=== PATIENT | female | born 1960 | race Caucasian/White ===

== ENCOUNTER 2021-03-26 13:32 | Emergency (ER) | payer SELFPAY ==
[~2021-03-26] VITALS: Ht 167.6 cm; Wt 73.0 kg
[2021-03-26] MEDS ORDERED: PLAVIX75 MG PO (15:17)
[2021-03-26] MEDS ORDERED: LISINOPRIL20 MG PO (15:17)
[2021-03-26] MEDS ORDERED: LIPITOR20 MG GT (15:18)
--- OUTSIDE RECORDS SUMMARY | 2021-03-26 16:20 | XMS ---
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 [place] VISIT COUNT (12 MO.) [facility] [address] TOTAL 3 NOTE: Visits indicate total known visits. ED/UCC VISIT TRACKING (12 MO.) 03/26/2021 13:35 [facility] [place] TYPE: Emergency COMPLAINT: - RACING HEART 03/16/2021 12:03 [facility] [place] TYPE: Emergency DIAGNOSES: - Cerebral infarction due to embolism of unspecified cerebral artery - Hypertension 03/15/2021 08:40 [facility] [place] TYPE: Emergency COMPLAINT: - numbness in left leg, tingling in bilateral feet DIAGNOSES: - Nicotine dependence, cigarettes, uncomplicated - Anesthesia of skin - Elevated blood-pressure reading, without diagnosis of hypertension - Allergy status to penicillin INPATIENT VISIT TRACKING (12 MO.) No inpatient visits to display in this time frame [email or web address]
--- NOTE | 2021-03-28 14:58 | EKG ---
[facility] [address] [facility] [place] [address] Signed Supraventricular tachycardia Marked ST abnormality, possible inferior subendocardial injury Abnormal ECG No previous ECGs available Confirmed by JOSE REYEZ MD ([id number]) on 03/28/2021 2:58:01 PM Electronically Signed By: JOSE REYEZ MD 03/28/21 1458 PATIENT NAME: ISSAC JIM Electrocardiogram DATE OF : 64 PHYSICIAN: JOSE REYEZ MD REPORT #: [id number] REPORT IS CONFIDENTIAL AND NOT TO BE RELEASED WITHOUT AUTHORIZATION
--- NOTE | 2021-03-28 14:58 | EKG ---
[facility] [address] [facility] [place] [address] Signed Normal sinus rhythm Nonspecific ST abnormality Abnormal ECG When compared with ECG of 26-MAR-2021 13:42, (Unconfirmed) Vent. rate has decreased BY [address] no longer depressed in Inferior leads ST less depressed in Lateral leads T wave inversion no longer evident in Inferior leads Confirmed by JOSE REYEZ MD ([id number]) on 03/28/2021 2:58:09 PM Electronically Signed By: JOSE REYEZ MD 03/28/21 1458 PATIENT NAME: ISSAC JIM Electrocardiogram DATE OF : 64 PHYSICIAN: JOSE REYEZ MD REPORT #: [id number] REPORT IS CONFIDENTIAL AND NOT TO BE RELEASED WITHOUT AUTHORIZATION
== END 2021-03-26 15:15 | disposition home or self-care (01) ==
LOC: ED 13:32
DX: I47.1 Supraventricular tachycardia (principal); Z88.0 Allergy status to penicillin
CPT/HCPCS: 80048; 85025; 93005; 93010; 96374; 99285-25; J0153; J7030